=== PATIENT | male | born 1965 | race Caucasian/White ===

== ENCOUNTER 2022-11-09 07:30 | Inpatient (IN) | payer MEDICAID ==
[2022-11-04 14:47] LABS: BASOPHILS # (AUTO) 0.1 X10'3 (0-0.2); BASOPHILS % (AUTO) 0.8 % (0-1); EOSINOPHILS # (AUTO) 0.1 X10'3 (0-0.9); EOSINOPHILS % (AUTO) 0.7 % (0-6); LYMPHOCYTES # (AUTO) 2.2 X10'3 (1.1-4.8); LYMPHOCYTES % (AUTO) 22.2 % (21-51); MEAN CORPUSCULAR HEMOGLOBIN 30.8 PG (27.0-31.0); MEAN CORPUSCULAR HGB CONC 33.4 g/dL (33.0-36.5); MEAN CORPUSCULAR VOLUME 92.3 FL (78-98); MEAN PLATELET VOLUME 8.6 FL (7.4-10.4); MONOCYTES # (AUTO) 0.6 X10'3 (0-0.9); MONOCYTES % (AUTO) 6.3 % (2-12); PRE OP HEMATOCRIT 47.9 % (42.0-52.0); PRE OP PLATELET COUNT 384 X10'3 (140-440); RED BLOOD COUNT 5.19 X10'6 (4.70-6.10); RED CELL DISTRIBUTION WIDTH 14.6 % (11.5-14.5)
[2022-11-04 15:11] LABS: ALBUMIN 3.7 G/DL (3.4-5.0); ALBUMIN/GLOBULIN RATIO 1.2 (1.1-1.5); ALKALINE PHOSPHATASE 90 IU/L (46-116); BLOOD UREA NITROGEN 10 MG/DL (7-18); BUN/CREATININE RATIO 10.5 (10.0-20.0); CALCIUM 8.8 MG/DL (8.5-10.1); CHLORIDE 104 MMOL/L (99-107); CREATININE 0.95 MG/DL (0.60-1.10); PRE OP ALT 14 U/L (30-65); PRE OP ANION GAP 8 (8-16); PRE OP AST 15 U/L (10-37); PRE OP BILIRUB, TOTAL 0.3 MG/DL (0.0-1.0); PRE OP GLUCOSE 128 MG/DL (70-104); PRE OP SODIUM 136 MMOL/L (135-145); TOTAL CARBON DIOXIDE 24.4 MMOL/L (24-32); TOTAL PROTEIN 6.9 G/DL (6.4-8.2); eGFR 82 ML/MIN
[~2022-11-09] VITALS: Ht 188 cm; Wt 131.3 kg
[2022-11-09] VITALS (24 sets, daily range): BP systolic 85–138; BP diastolic 49–75; PULSE 58–100; RESP 12–20; TEMP 97.5–97.9; O2SAT 92–97
[~2022-11-09 07:30] MED LIST: CLON2TAB PO; DICY20TA2 PO; ESCI10TA PO; LISI10TA27 PO; QUET-1 PO; ceFAZolin inj. 3,000 MG in normal saline 100ml IV soln 100 ML IV ONE; famotidine 20mg tablet PO ONE; ringers solution, lacted 1,000 ML IV SCH; tranexamic acid 650mg tablet PO ONE; vancomycin 1,500 MG in NS 300ml IV soln IV ONE
[2022-11-09] MEDS ORDERED: ipratropium/albuterol 3ml nebule NEB ONE (08:20)
[2022-11-09] MEDS ORDERED: FLUT1BLS4 INH (09:18)
[2022-11-09] MEDS ORDERED: fentaNYL/PF 50MCG/1 ML 2ML syringe ONE ×3 (09:35→14:31)
[2022-11-09] MEDS ORDERED: midazolam 1 mg/ML 2ml injection ONE ×3 (09:35→12:48)
[2022-11-09] MEDS ORDERED: dexmedetomidine 200mcg/2ml inj. IV ONE (11:31)
[2022-11-09] MEDS ORDERED: ROPIVAcaine 0.5% (5mg/ml) 30ml vial ONE ×3 (11:59→13:36)
[2022-11-09] MEDS ORDERED: ondansetron/PF 4mg/2ml inj ONE (12:00)
[2022-11-09] MEDS ORDERED: LIDOcaine 1%/PF 5ML 10 MG/ML VIAL ONE (12:00)
[2022-11-09] MEDS ORDERED: dexamethasone sod phosphate 4mg/ml inj. ONE ×2 (12:00→13:36)
[2022-11-09] MEDS ORDERED: propofol inj 20 ML IV ONE ×3 (12:00→13:36)
[2022-11-09] MEDS ORDERED: ringers solution, lacted 1,000 ML IV SCH (12:30)
[2022-11-09] MEDS ORDERED: ROPIVAcaine 0.2%/PF PUMP/bolus 545 ML INTERSCALE SCH (12:30)
[2022-11-09] MEDS ORDERED: morphine 2 MG/ML inj. syringe IV PRN (12:30)
[2022-11-09] MEDS ORDERED: ROPIVAcaine 0.2% (10 MG/5 ML) BOLUS INJECTION INTERSCALE PRN (12:30)
[2022-11-09] MEDS ORDERED: fentaNYL/PF 50MCG/1 ML 2ML syringe IV PRN ×2 (12:30)
[2022-11-09] MEDS ORDERED: hydrALAZINE 20mg/ml inj. IV PRN (12:30)
[2022-11-09] MEDS ORDERED: ondansetron/PF 4mg/2ml inj IV PRN ×2 (12:30→15:35)
[2022-11-09] MEDS ORDERED: morphine 4 MG/ML inj SYRINge IV PRN (12:30)
[2022-11-09] MEDS ORDERED: labetalol 20mg/4ml (5mg/ml) syringe IV PRN (12:30)
[2022-11-09] MEDS ORDERED: ROPIVAcaine 0.5% (5mg/ml) 30ml vial IJ ONE (13:00)
[2022-11-09] MEDS ORDERED: ePHEDrine 50MG/ML INJ. ONE (13:36)
[2022-11-09] MEDS ORDERED: phenylephrine 10mg/ml inj. -priapism dosing ONE (13:36)
[2022-11-09] MEDS ORDERED: MIDAZolam 1 MG/ML 5ML VIAL ONE (14:32)
--- NOTE | 2022-11-09 15:30 | NUR ---
Received from OR via BED, accompanied by Anesthesiologist and report given by Anesthesiologist. PATIENT WAKING UP, NO S/S OF PAIN, V/S WNL, SCD ON, 20G TO RUE, drsg to LEFT shoulder-CDI with SLING POWDER PACK
[2022-11-09] MEDS ORDERED: HYDROcodone/acetaminophen 10/325mg tab PO PRN (15:35)
[2022-11-09] MEDS ORDERED: bisacodyl 10mg suppository rectal RC PRN (15:35)
[2022-11-09] MEDS ORDERED: naloxone 0.4 mg/ml inj IV PRN (15:35)
[2022-11-09] MEDS ORDERED: diphenhydrAMINE 25mg capsule PO PRN ×2 (15:35)
[2022-11-09] MEDS ORDERED: acetaminophen 325mg tablet PO PRN (15:35)
[2022-11-09] MEDS ORDERED: magnesium hydroxide 30ml (MOM) UD suspension PO PRN (15:35)
[2022-11-09] MEDS ORDERED: HYDROmorphone inj. 0.5 MG/0.5 ML DISP.SYRIN IV PRN (15:35)
[2022-11-09] MEDS ORDERED: HYDROmorphone 1 mg/ml syringe IV PRN (15:35)
[2022-11-09] MEDS ORDERED: oxyCODONE IR 5mg (immed. release) tablet PO PRN ×2 (15:35)
--- NOTE | 2022-11-09 15:35 | NUR ---
Received from OR via BED, accompanied by Anesthesiologist and report given by Anesthesiologist. PATIENT WAKING UP, NO S/S OF PAIN, V/S WNL, SCD ON, 20G TO yesenia CAMPBELL to LEFT shoulder-CDI with SLING POWDER PACK Addendum: 11/09/22 at 1541 by Crow Albrecht RN WRONG TIME
--- NOTE | 2022-11-09 16:50 | NUR ---
PATIENT A&OX4, DENIES PAIN, V/S WNL, SCD ON, 20G TO RUE, drsg to LEFT shoulder-CDI with SLING POWDER PACK. PATIENT TAKEN TO 4021A WITH ALL BELONGINGS AND HOOKED UP TO MONITORS IN ROOM AND REPORT GIVEN TO STOCK HANDLER WHO HAS TAKEN OVER PATIENT CARE.
--- NOTE | 2022-11-09 18:05 | NUR ---
pt physical was not charted on my shift. pt. came at 1715h. just did a quick gross physical of post op vital signs, and pulses. pt. was alert, orientated, and stable, pulses palpable and good cap refill. lung sounds were clear on auscultation.
[2022-11-09] MEDS: ceFAZolin/D5W- 1GM premix 50 ML IV SCH (18:44)
--- NOTE | 2022-11-09 18:54 | NUR ---
Problems reprioritized. Patient report given TO ULI MAKI, questions answered & plan of care reviewed with .
--- NOTE | 2022-11-09 19:15 | NUR ---
Received report from Latoya MAKI. Patient sitting up in bed requesting coffee to drink.
[2022-11-09] MEDS ORDERED: vancomycin/NS 1 GM ADD-VANTAGE 250 ML IV SCH (20:00)
[2022-11-09] MEDS: HYDROcodone/acetaminophen 10/325mg tab PO PRN (20:56)
[2022-11-09] MEDS ORDERED: sennosides 8.6mg tablet PO SCH (21:00)
[2022-11-09] MEDS ORDERED: quetiapine 100mg tablet PO SCH (21:00)
[2022-11-09] MEDS ORDERED: ESCITALOPRAM OXALATE 5 MG TABLET PO SCH (21:00)
[2022-11-09] MEDS ORDERED: clonazePAM 1mg tablet PO SCH (21:00)
[2022-11-09] MEDS ORDERED: dicyclomine 10 MG capsule PO SCH (21:00)
[2022-11-09] MEDS ORDERED: lisinopril 10 MG tablet PO SCH (21:00)
[2022-11-09] MEDS: potassium cl 20mEq in 1/2 NS 1,000 ML IV SCH ×2 (21:55→23:35)
[2022-11-10] VITALS (8 sets, daily range): BP systolic 110–135; BP diastolic 60–77; PULSE 53–78; RESP 16–22; TEMP 97.5–97.9; O2SAT 91–94
[2022-11-10] MEDS: ceFAZolin/D5W- 1GM premix 50 ML IV SCH (00:51)
[2022-11-10] MEDS: potassium cl 20mEq in 1/2 NS 1,000 ML IV SCH ×2 (05:25→15:35)
[2022-11-10] MEDS: HYDROcodone/acetaminophen 10/325mg tab PO PRN ×2 (05:30→16:08)
--- NOTE | 2022-11-10 06:35 | NUR ---
Problems reprioritized. Patient report given, questions answered & plan of care reviewed with Momo MAKI.
[2022-11-10 06:49] LABS: BASOPHILS # (AUTO) 0.1 X10'3 (0-0.2); BASOPHILS % (AUTO) 0.3 % (0-1); EOSINOPHILS % (AUTO) 0 % (0-6); LYMPHOCYTES # (AUTO) 0.7 X10'3 (1.1-4.8); LYMPHOCYTES % (AUTO) 3.1 % (21-51); MEAN PLATELET VOLUME 8.7 FL (7.4-10.4); MONOCYTES # (AUTO) 0.8 X10'3 (0-0.9); MONOCYTES % (AUTO) 3.4 % (2-12); NEUTROPHILS % (AUTO) 93.2 % (42-75); PLATELET COUNT 246 X10'3 (140-440); WHITE BLOOD COUNT 22.5 X10'3 (4.5-11.0)
[2022-11-10 07:11] LABS: ANION GAP 14 (8-16); CHLORIDE 103 MMOL/L (99-107); SODIUM 136 MMOL/L (135-145); TOTAL CARBON DIOXIDE 19.4 MMOL/L (24-32)
[2022-11-10 07:14] LABS: POTASSIUM 5.4 MMOL/L (3.5-5.1)
--- NOTE | 2022-11-10 07:28 | NUR ---
Patient in room [facility] 4021. I have received report from JENNY MAKI and had the opportunity to ask questions and assume patient care.
[2022-11-10 08:18] LABS: HEMATOCRIT 39.8 % (42.0-52.0); HEMOGLOBIN 12.9 g/dl (14.0-17.9); MEAN CORPUSCULAR HEMOGLOBIN 29.6 PG (27.0-31.0); MEAN CORPUSCULAR VOLUME 91.4 FL (78-98); RED BLOOD COUNT 4.36 X10'6 (4.70-6.10)
[2022-11-10 08:19] LABS: MEAN CORPUSCULAR HGB CONC 32.4 g/dL (33.0-36.5)
[2022-11-10] MEDS ORDERED: aspirin 325mg tablet PO SCH (08:30)
--- NOTE | 2022-11-10 13:55 | NUR ---
notified neida of abnormal wbc and k. no abx needed at this time
--- NOTE | 2022-11-10 16:36 | NUR ---
Joint surgery consult: Pt s/p L shoulder surgery this admit per EMR. Pt not present during RD visit; written high protein diet ed w/ RD contact information mailed to home address provided in EMR. Addendum: 11/10/22 at [address] Amended: Links added.
--- NOTE | 2022-11-10 17:20 | NUR ---
PT IS STABLE FOR DC, ALL DC INFO GONE OVER, PT TOOK ALL BELONGINGS, IV DC, ON Q BALL WAS FULL ON DC, HE WAS WALKED DOWN TO [facility] AND LEFT WITH TRANSPORT WHO WAS GIVING HIM A RIDE HOME. NO HOME MEDS IN PHARMACY.
== END 2022-11-10 16:50 | disposition home or self-care (01) | DRG 322 ==
LOC: PAS IN 07:56 → ORTHO 4S 16:48
PROVIDERS: ADMIT Orthopaedic Surgery; ATTEND Orthopaedic Surgery
PROC: 0LS40ZZ Reposition Left Upper Arm Tendon, Open Approach (ICD-10-PCS; 2022-11-09)
PROC: 3E0T3BZ Introduction of Anesthetic Agent into Peripheral Nerves and Plexi, Percutaneous Approach (ICD-10-PCS; 2022-11-09)
PROC: 0RRK00Z Replacement of Left Shoulder Joint with Reverse Ball and Socket Synthetic Substitute, Open Approach (ICD-10-PCS; principal; 2022-11-09 13:35)
DX: M19.012 Primary osteoarthritis, left shoulder (principal); M65.812 Other synovitis and tenosynovitis, left shoulder
CPT/HCPCS: 36415; 80051; 80053; 82948; 85025; 87081; 94640; 97161; 97530; A4565; A4615; A4618; A6258; A7000; C1776; G0378; J0690; J1100; J2250; J2370; J2405; J2704; J2795; J3010; J3370; J3480; J3490; J7120